=== PATIENT | female | born 1990 | race Caucasian/White ===

== ENCOUNTER 2020-01-10 12:08 | Emergency (ER) | payer OTHER ==
[~2020-01-10] VITALS: Ht 152.4 cm; Wt 49.9 kg
[2020-01-10] MEDS ORDERED: CLARITIN-D 241 EACH (12:35)
[2020-01-10] MEDS ORDERED: TRI-LO-SPRINTE1 EACH (12:36)
[2020-01-10] MEDS ORDERED: PROPRANOLOL HCL10 MG PO (16:48)
== END 2020-01-10 17:38 | disposition home or self-care (01) ==
LOC: ER 12:08 → EDBD 12:08 → ER 12:45
DX: R00.0 Tachycardia, unspecified (principal); R00.2 Palpitations

== ENCOUNTER 2021-12-31 08:34 | Emergency (ER) | payer OTHER ==
[~2021-12-31] VITALS: Ht 152.4 cm; Wt 50.8 kg
[~2021-12-31 08:34] MED LIST: CLARITIN-D 241 EACH; PROPRANOLOL HCL10 MG PO; TRI-LO-SPRINTE1 EACH
== END 2021-12-31 15:28 | disposition home or self-care (01) ==
LOC: ER 08:34
DX: R51.9 Headache, unspecified (principal); Z88.6 Allergy status to analgesic agent

== ENCOUNTER 2023-12-08 17:38 | Emergency (ER) | payer OTHER ==
[~2023-12-08] VITALS: Ht 152.4 cm; Wt 57.6 kg
[2023-12-08] MEDS ORDERED: ONDANSETRON HCL 2 MG/ML VIAL IV ONE (18:15)
[2023-12-08] MEDS ORDERED: 0.9 % SODIUM CHLORIDE 1,000 ML IV ONE (18:15)
[2023-12-08] MEDS ORDERED: FAMOtidine 10 MG/ML (4ML VIAL) IV ONE (18:15)
[2023-12-08] MEDS ORDERED: KETOROLAC TROMETHAMINE 60 MG VIAL IM ONE ×2 (18:15→18:23)
[2023-12-08] MEDS ORDERED: FAMOTIDINE/PF 20 MG/2 ML VIAL ONE (18:23)
[2023-12-08] MEDS ORDERED: ONDANSETRON HCL 2 MG/ML VIAL ONE (18:23)
[2023-12-08] MEDS ORDERED: MORPHINE SULFATE 4 MG/ML VIAL IV ONE ×2 (18:30→22:30)
[2023-12-08 18:34] LABS: HEMOGLOBIN 11.6 g/dL (12.0-15.00); MEAN CELL VOLUME 97.1 fL (80.00-100.00); MEAN CORPUSCULAR HEMOGLOBIN 32.2 pg (27.00-32.0); MEAN CORPUSCULAR HGB CONC 33.2 g/dl (32.0-36.0); PLATELET COUNT 264 K/uL (150-450); RED CELL DISTRIBUTION WIDTH 12.2 % (11.5-14.5)
[2023-12-08 19:01] LABS: ALBUMIN 3.8 gm/dL (3.4-5.0); ALKALINE PHOSPHATASE 90 U/L (50-136); ALT/SGPT 34 U/L (12-78); ANION GAP 10 (10.0-20.0); AST/SGOT 12 U/L (15-37); BILIRUBIN TOTAL 0.52 mg/dL (0.3-1.2); BLOOD UREA NITROGEN 21 mg/dL (7-18); BUN CREA RATIO 23 (7.0-25.0); CALCIUM 8.8 mg/dL (8.5-10.1); CARBON DIOXIDE 27 mEq/L (21-32); CHLORIDE 109 mmol/L (98-107); CREATININE SERUM 0.91 mg/dL (0.55-1.02); GFR 70.35; GLUCOSE FASTING 93 mg/dL (65-100); OSMOLALITY SERUM 286 MOSM/KG (275-295); POTASSIUM 3.55 mEq/L (3.5-5.1); SODIUM 142 mmol/L (136-145); TOTAL PROTEIN 7.8 gm/dL (6.4-8.2)
[2023-12-08 19:05] LABS: HCG QUANTITATIVE < 1 mUI/mL (1-3)
[2023-12-08 19:14] LABS: URINE BILIRRUBIN NEGATIVE (NEGATIVE); URINE BLOOD NEGATIVE; URINE KETONE 15 (NEGATIVE); URINE LEUKOCYTE TRACE; URINE NITRATE POSITIVE
[2023-12-08 19:17] LABS: URINE UROBILINOGEN >= 8.0 E.U./dl
[2023-12-08 19:18] LABS: URINE APPEARANCE CLOUDY; URINE COLOR RED; URINE GLUCOSE 250 MG/DL (NEGATIVE); URINE PROTEIN >=300 (NEGATIVE)
[2023-12-08 19:24] LABS: URINE RBC 0-3 /HPF
[2023-12-08 19:25] LABS: URINE BACTERIA FEW; URINE CRYSTALS MANY /HPF; URINE MUCUS MODERATE
[2023-12-08] MEDS ORDERED: KETO10TA2 PO (22:20)
[2023-12-08] MEDS ORDERED: TAMS0.4C PO (22:20)
[2023-12-08] MEDS ORDERED: PEPCID AC20 MG PO (22:20)
[2023-12-08] MEDS ORDERED: ZOFRAN8 MG PO (22:20)
== END 2023-12-08 22:37 | disposition home or self-care (01) ==
LOC: ER 17:40
PROVIDERS: General Practice
DX: R10.32 Left lower quadrant pain (principal); N20.0 Calculus of kidney; K59.00 Constipation, unspecified